=== PATIENT | female | born 1975 | race Caucasian/White ===

== ENCOUNTER → 2021-01-27 13:35 | Outpatient (CLI) | payer BC, SELFPAY ==
--- NOTE | 2021-01-27 14:00 | VDLE_ITS ---
Reason For Study: PAIN RIGHT LEFT GSV is normal. CFV is compressible, spontaneous, phasic, CFV is compressible, spontaneous, phasic, competent, and demonstrates normal competent and demonstrates normal augmentation. augmentation. FV is compressible, spontaneous, phasic, competent and demonstrates normal augmentation. POP V is compressible, spontaneous, phasic, competent and demonstrates normal augmentation. T/P Trunk is compressible. PTV is compressible. RT PerV is compressible. Procedure Exam performed in department. This is a venous duplex using B-mode, color flow and spectral Doppler. VL/Venous Duplex US, Unilateral Interpretation Summary Deep veins of the right lower extremity are patent and compressible segmentally . There is no evidence of right lower extremity deep vein thrombosis. Valvular competence jarret ears intact within the proximal deep venous system on the right . The right great saphenous vein a ppears patent and compressible segmentally. Ordering Physician: Parmjit Montoya Referring Physician: CONNER ANTHONY Performed By: Lara Al, RDCS, RVT
== END ==
PROVIDERS: PCP Internal Medicine; Referring Provider Surgery; Visit Provider Surgery
DX: I83.10 Varicose veins of unspecified lower extremity with inflammation (principal); I82.401 Acute embolism and thrombosis of unspecified deep veins of right lower extremity
CPT/HCPCS: 93971